=== PATIENT | male | born 1990 | race Caucasian/White ===

== ENCOUNTER 2017-06-01 19:27 | Emergency (ER) | payer OTHER ==
[~2017-06-01] VITALS: Ht 188 cm; Wt 90.0 kg
[~2017-06-01 19:27] MED LIST: NO HOME MEDS
[2017-06-01] MEDS ORDERED: LIDOcaine 1.5% w/epinephrine 1:200,000 5ml ampul IJ ONE (22:50)
[2017-06-01] MEDS ORDERED: TETanus/Pertussis (Acell)/Diphther VAC/PF (Tdap-Adult) 0.5ml syringe IM ONE (22:50)
[2017-06-01 23:31] VITALS: BP 121/84
== END 2017-06-01 23:33 | disposition home or self-care (01) ==
LOC: ER 19:27
DX: S01.511A Laceration without foreign body of lip, initial encounter (principal); F12.10 Cannabis abuse, uncomplicated; Y08.89XA Assault by other specified means, initial encounter; Y93.89 Activity, other specified; Y92.89 Other specified places as the place of occurrence of the external cause; Y99.8 Other external cause status
CPT/HCPCS: 12011; 90715; 99283; J3490

== ENCOUNTER 2018-11-10 19:51 | Emergency (ER) | payer SELFPAY ==
[~2018-11-10] VITALS: Ht 188 cm; Wt 104.5 kg
[2018-11-10 19:57] VITALS: BP 115/74
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
--- NOTE | 2018-11-10 20:49 | NUR ---
Kee, [phone], [facility]
[2018-11-10] MEDS ORDERED: naproxen 500mg tablet PO ONE (21:40)
== END 2018-11-10 22:18 | disposition home or self-care (01) ==
LOC: ER 19:51
DX: R07.89 Other chest pain (principal); F41.9 Anxiety disorder, unspecified; F12.90 Cannabis use, unspecified, uncomplicated
CPT/HCPCS: 36415; 84484; 93005; 99284

== ENCOUNTER 2020-02-29 15:27 | Emergency (ER) | payer MEDICAID ==
[~2020-02-29] VITALS: Ht 185.4 cm; Wt 102.3 kg
[2020-02-29] MEDS ORDERED: ONDA4TAB6 PO (16:38)
[2020-02-29] MEDS ORDERED: DEXA6TAB PO (16:38)
[2020-02-29] MEDS ORDERED: dexamethasone sod phosphate 10mg/ml inj IM STA (16:41)
[2020-02-29] MEDS ORDERED: ALBU8HFA PO (16:54)
[2020-02-29] MEDS ORDERED: GUAI-647 PO (16:56)
[2020-02-29 17:14] VITALS: BP 125/98
== END 2020-02-29 17:18 | disposition home or self-care (01) ==
LOC: ER 15:27
DX: R05 Cough (principal); R51.9 Headache, unspecified; R06.02 Shortness of breath; R07.9 Chest pain, unspecified; R11.0 Nausea; F12.10 Cannabis abuse, uncomplicated; Z20.828 Contact with and (suspected) exposure to other viral communicable diseases
CPT/HCPCS: 36415; 71045; 87635; 93005; 96372; 99285; J1100

== ENCOUNTER 2020-04-21 10:59 | Emergency (ER) | payer SELFPAY ==
[~2020-04-21] VITALS: Ht 175.3 cm; Wt 97.7 kg
[~2020-04-21 10:59] MED LIST changes: +DEXA6TAB PO; +ONDA4TAB6 PO
[2020-04-21] MEDS ORDERED: PRED10TA23 PO (11:21)
[2020-04-21 11:55] VITALS: BP 146/73
== END 2020-04-21 11:59 | disposition home or self-care (01) ==
LOC: ER 10:59
DX: U07.1 COVID-19 (principal); R05 Cough; Z79.899 Other long term (current) drug therapy; F12.90 Cannabis use, unspecified, uncomplicated; Z72.89 Other problems related to lifestyle
CPT/HCPCS: 71045; 99283

== ENCOUNTER 2020-05-06 14:05 | Emergency (ER) | payer OTHER ==
[~2020-05-06] VITALS: Ht 182.9 cm; Wt 109.1 kg
[~2020-05-06 14:05] MED LIST changes: +PRED10TA23 PO
[2020-05-06] MEDS ORDERED: predniSONE 20 mg tablet PO ONE (15:05)
[2020-05-06] MEDS ORDERED: albuterol 2.5 MG/3 ML nebule CONTNEB PRN (15:05)
--- NOTE | 2020-05-06 15:30 | NUR ---
PT PLACED IN ROOM 10 WITH RESP ISO PRECAUTIONS. WOOD TYPE CUTTER PLACED ON PT, VS TAKEN
[2020-05-06 15:39] LABS: BASOPHILS % (AUTO) 0.3 % (0-1); EOSINOPHILS # (AUTO) 0.5 X10'3 (0-0.9); EOSINOPHILS % (AUTO) 4.9 % (0-6); HEMATOCRIT 47.3 % (42.0-52.0); HEMOGLOBIN 15.8 g/dl (14.0-17.9); LYMPHOCYTES # (AUTO) 1.1 X10'3 (1.1-4.8); MEAN CORPUSCULAR HEMOGLOBIN 28.8 PG (27.0-31.0); MEAN CORPUSCULAR HGB CONC 33.5 g/dL (33.0-36.5); MEAN PLATELET VOLUME 7.6 FL (7.4-10.4); MONOCYTES % (AUTO) 8.9 % (2-12); NEUTROPHILS # (AUTO) 8.1 X10'3 (1.8-7.7); NEUTROPHILS % (AUTO) 75.9 % (42-75); PLATELET COUNT 207 X10'3 (140-440); RED CELL DISTRIBUTION WIDTH 14.1 % (11.5-14.5); WHITE BLOOD COUNT 10.7 X10'3 (4.5-11.0)
[2020-05-06 15:55] LABS: ALANINE AMINOTRANSFERASE 56 U/L (12-78); ALBUMIN 2.6 G/DL (3.4-5.0); ALBUMIN/GLOBULIN RATIO 0.6 (1.1-1.5); ALKALINE PHOSPHATASE 68 IU/L (46-116); ANION GAP 4 (8-16); ASPARTATE AMINO TRANSFERASE 18 U/L (10-37); BILIRUBIN,TOTAL 0.3 MG/DL (0.1-1.0); BLOOD UREA NITROGEN 24 MG/DL (7-18); BUN/CREATININE RATIO 34.8 (5.4-32.0); CALCIUM 8.8 MG/DL (8.5-10.1); CHLORIDE 107 MMOL/L (99-107); CREATININE 0.69 MG/DL (0.60-1.10); GLUCOSE 92 MG/DL (70-104); SODIUM 139 MMOL/L (135-145); TOTAL CARBON DIOXIDE 27.7 MMOL/L (24-32); TOTAL PROTEIN 7.3 G/DL (6.4-8.2); eGFR > 90 ML/MIN
[2020-05-06] MEDS ORDERED: iohexol 350MG/ML 100ml bottle IV ONE ×2 (16:03→17:26)
--- NOTE | 2020-05-06 16:58 | NUR ---
CONT NEB FINISHED, CT PG'ED, PT REPORTS IT IS "A LITTLE BIT EASIER TO BREATH" THAN BEFORE HE CAME TO ER
[2020-05-06] MEDS ORDERED: ipratropium/albuterol 3ml nebule NEB ONE (18:25)
[2020-05-06 18:52] VITALS: BP 128/85
== END 2020-05-06 18:54 | disposition home or self-care (01) ==
LOC: ER 14:07
DX: U07.1 COVID-19 (principal); R06.02 Shortness of breath; R06.2 Wheezing; F12.90 Cannabis use, unspecified, uncomplicated; Z79.899 Other long term (current) drug therapy; Z87.891 Personal history of nicotine dependence; Z72.89 Other problems related to lifestyle
CPT/HCPCS: 36415; 71045; 71275; 80053; 83880; 85025; 93005; 94640; 99285; J7512; Q9967; 94760; A7015

== ENCOUNTER 2020-05-15 21:51 | Emergency (ER) | payer OTHER ==
[~2020-05-15] VITALS: Ht 185.4 cm; Wt 109.1 kg
[2020-05-15] MEDS ORDERED: DIAZ-351 PO (23:24)
[2020-05-15] MEDS ORDERED: METH-360 PO (23:24)
[2020-05-15] MEDS ORDERED: ketorolac tromethamine 15mg/ml inj. IM ONE (23:25)
[2020-05-15] MEDS ORDERED: acetaminophen 325mg tablet PO ONE (23:35)
[2020-05-16 00:11] VITALS: BP 139/101
== END 2020-05-16 00:13 | disposition home or self-care (01) ==
LOC: ER 21:51
DX: S39.012A Strain of muscle, fascia and tendon of lower back, initial encounter (principal); R21 Rash and other nonspecific skin eruption; F12.90 Cannabis use, unspecified, uncomplicated; Z72.89 Other problems related to lifestyle; Z79.899 Other long term (current) drug therapy; X58.XXXA Exposure to other specified factors, initial encounter; Y93.89 Activity, other specified; Y92.89 Other specified places as the place of occurrence of the external cause; Y99.8 Other external cause status
CPT/HCPCS: 96372; 99283; J1885

== ENCOUNTER 2020-05-17 10:00 | Emergency (ER) | payer OTHER ==
[~2020-05-17] VITALS: Ht 185.4 cm; Wt 109.1 kg
[~2020-05-17 10:00] MED LIST changes: +DIAZ-351 PO; +METH-360 PO
[2020-05-17] MEDS ORDERED: normal saline 1000ML IV soln IVB ONE ×2 (10:50→12:15)
--- NOTE | 2020-05-17 11:10 | NUR ---
PATIENT HAS A DIFFUSE REDDENED RASH
[2020-05-17 11:12] LABS: BASOPHILS # (AUTO) 0.1 X10'3 (0-0.2); BASOPHILS % (AUTO) 0.4 % (0-1); EOSINOPHILS # (AUTO) 1.1 X10'3 (0-0.9); EOSINOPHILS % (AUTO) 7.8 % (0-6); HEMATOCRIT 42.9 % (42.0-52.0); HEMOGLOBIN 14.3 g/dl (14.0-17.9); LYMPHOCYTES # (AUTO) 3.4 X10'3 (1.1-4.8); LYMPHOCYTES % (AUTO) 25.4 % (21-51); MEAN CORPUSCULAR HEMOGLOBIN 28.3 PG (27.0-31.0); MEAN CORPUSCULAR HGB CONC 33.3 g/dL (33.0-36.5); MEAN PLATELET VOLUME 7.6 FL (7.4-10.4); MONOCYTES # (AUTO) 0.8 X10'3 (0-0.9); MONOCYTES % (AUTO) 6.1 % (2-12); NEUTROPHILS # (AUTO) 8.1 X10'3 (1.8-7.7); NEUTROPHILS % (AUTO) 60.3 % (42-75); PLATELET COUNT 134 X10'3 (140-440); RED BLOOD COUNT 5.04 X10'6 (4.70-6.10); RED CELL DISTRIBUTION WIDTH 14.3 % (11.5-14.5); WHITE BLOOD COUNT 13.5 X10'3 (4.5-11.0)
[2020-05-17 11:22] LABS: PARTIAL THROMBOPLASTIN TIME 28 SECONDS (22-32)
[2020-05-17 11:34] LABS: ALANINE AMINOTRANSFERASE 41 U/L (12-78); ALBUMIN 1.6 G/DL (3.4-5.0); ALBUMIN/GLOBULIN RATIO 0.4 (1.1-1.5); ALKALINE PHOSPHATASE 67 IU/L (46-116); ANION GAP 6 (8-16); ASPARTATE AMINO TRANSFERASE 22 U/L (10-37); BILIRUBIN,TOTAL 0.4 MG/DL (0.1-1.0); BLOOD UREA NITROGEN 21 MG/DL (7-18); BUN/CREATININE RATIO 22.8 (5.4-32.0); C-REACTIVE PROTEIN 2.72 MG/DL (0.0-0.5); CHLORIDE 107 MMOL/L (99-107); CREATININE 0.92 MG/DL (0.60-1.10); GLUCOSE 123 MG/DL (70-104); POTASSIUM 3.9 MMOL/L (3.5-5.1); SODIUM 139 MMOL/L (135-145); TOTAL CARBON DIOXIDE 26.2 MMOL/L (24-32); TOTAL PROTEIN 6.1 G/DL (6.4-8.2); eGFR > 90 ML/MIN
[2020-05-17] MEDS ORDERED: acetaminophen 325mg tablet PO ONE (12:00)
--- NOTE | 2020-05-17 12:19 | NUR ---
patient ambulated wnl to bathroom to attempt to obtain urine sample
[2020-05-17 12:35] LABS: CLARITY,URINE SLIGHTLY CLOUDY (Clear); COLOR,URINE YELLOW (Yellow); GLUCOSE, URINE NEGATIVE (Neg); KETONES,URINE NEGATIVE (Neg); LEUKOCYTE ESTERASE ,URINE NEGATIVE (Neg); NITRITES, URINE NEGATIVE (Neg); OCCULT BLOOD,URINE MODERATE (Neg); PH,URINE 6.5 (4.8-8.0); PROTEIN,URINE >=300 mg/dl (Neg); UROBILINOGEN,URINE 0.2 E.U/dL (0.2-1.0)
[2020-05-17 12:39] LABS: UA COLLECTION TYPE URINAL
[2020-05-17 12:43] LABS: HYALINE CASTS 0-3 /LPF (NEGATIVE); MUCUS STRANDS MODERATE /LPF (Neg)
[2020-05-17 12:48] LABS: BACTERIA,URINE FEW /HPF (Neg); SQUAMOUS EPITHELIAL CELL,UR NONE SEEN /LPF (FEW); WBC,URINE 0-4 /HPF (0-4)
[2020-05-17 14:04] VITALS: BP 142/88
== END 2020-05-17 14:00 | disposition home or self-care (01) ==
LOC: ER 10:00
DX: R21 Rash and other nonspecific skin eruption (principal); R50.9 Fever, unspecified; R05 Cough; R06.02 Shortness of breath; M25.50 Pain in unspecified joint; F12.90 Cannabis use, unspecified, uncomplicated; Z87.891 Personal history of nicotine dependence; Z72.89 Other problems related to lifestyle; Z79.899 Other long term (current) drug therapy; Z86.16 Personal history of COVID-19
CPT/HCPCS: 36415; 71045; 80053; 81001; 85025; 85610; 85651; 85730; 86140; 87081; 87880; 96360; 96361; 99284; J7030

== ENCOUNTER 2020-05-19 03:57 | Inpatient (IN) | payer OTHER ==
[~2020-05-19] VITALS: Ht 188 cm; Wt 109.1 kg
[2020-05-19] MEDS ORDERED: ondansetron/PF 4mg/2ml inj IV ONE (05:10)
[2020-05-19] MEDS ORDERED: LORazepam 2 mg/ml vial IV ONE (05:10)
[2020-05-19] MEDS ORDERED: morphine 2 MG/ML inj. syringe IV PRN (05:10)
[2020-05-19] MEDS ORDERED: normal saline 1000ML IV soln IVB ONE ×2 (05:10→05:55)
[2020-05-19] MEDS ORDERED: pantoprazole 40 MG vial IV ONE ×2 (05:10→10:15)
[2020-05-19] MEDS ORDERED: ipratropium/albuterol 3ml nebule NEB ONE (05:10)
[2020-05-19 05:24] LABS: BASOPHILS % (AUTO) 0.4 % (0-1); EOSINOPHILS # (AUTO) 0.9 X10'3 (0-0.9); EOSINOPHILS % (AUTO) 7.9 % (0-6); HEMATOCRIT 41.2 % (42.0-52.0); HEMOGLOBIN 13.8 g/dl (14.0-17.9); LYMPHOCYTES # (AUTO) 1.5 X10'3 (1.1-4.8); LYMPHOCYTES % (AUTO) 13.7 % (21-51); MEAN CORPUSCULAR HEMOGLOBIN 28.5 PG (27.0-31.0); MEAN CORPUSCULAR HGB CONC 33.5 g/dL (33.0-36.5); MEAN PLATELET VOLUME 8.7 FL (7.4-10.4); MONOCYTES # (AUTO) 0.7 X10'3 (0-0.9); MONOCYTES % (AUTO) 6.6 % (2-12); NEUTROPHILS # (AUTO) 7.9 X10'3 (1.8-7.7); NEUTROPHILS % (AUTO) 71.4 % (42-75); PLATELET COUNT 107 X10'3 (140-440); RED BLOOD COUNT 4.84 X10'6 (4.70-6.10); RED CELL DISTRIBUTION WIDTH 14.7 % (11.5-14.5)
[2020-05-19 05:36] LABS: ALANINE AMINOTRANSFERASE 46 U/L (12-78); ALBUMIN 1.7 G/DL (3.4-5.0); ALBUMIN/GLOBULIN RATIO 0.4 (1.1-1.5); ALKALINE PHOSPHATASE 72 IU/L (46-116); ANION GAP 8 (8-16); ASPARTATE AMINO TRANSFERASE 19 U/L (10-37); BILIRUBIN,TOTAL 0.5 MG/DL (0.1-1.0); BLOOD UREA NITROGEN 24 MG/DL (7-18); CALCIUM 7.8 MG/DL (8.5-10.1); CHLORIDE 106 MMOL/L (99-107); GLUCOSE 96 MG/DL (70-104); LIPASE < 50 U/L (73-393); POTASSIUM 3.8 MMOL/L (3.5-5.1); SODIUM 140 MMOL/L (135-145); TOTAL CARBON DIOXIDE 25.7 MMOL/L (24-32); TOTAL PROTEIN 6.4 G/DL (6.4-8.2); eGFR 89 ML/MIN
[2020-05-19] MEDS ORDERED: ONDA8TAB13 PO (05:53)
[2020-05-19] MEDS ORDERED: PANT-47 PO (05:53)
[2020-05-19 07:31] LABS: URINE AMPHETAMINE SCREEN NEGATIVE (Neg); URINE BARBITUATE SCREEN NEGATIVE (Neg); URINE BENZODIAZEPINES SCREEN POSITIVE (Neg); URINE CANNABINOID SCREEN POSITIVE (Neg); URINE COCAINE SCREEN NEGATIVE (Neg); URINE METHADONE SCREEN NEGATIVE (Neg); URINE OPIATE SCREEN POSITIVE (Neg); URINE PHENCYCLIDINE SCREEN NEGATIVE (Neg)
[2020-05-19 09:33] LABS: ETHANOL < 0.010 GM/DL (0.0-0.010)
[2020-05-19] MEDS ORDERED: magnesium hydroxide 30ml (MOM) UD suspension PO PRN (10:00)
[2020-05-19] MEDS ORDERED: magnesium Cl slow-release 64mg tablet PO PRN (10:00)
[2020-05-19] MEDS ORDERED: potassium Cl 20 mEq SR tablet PO PRN ×2 (10:00)
[2020-05-19] MEDS ORDERED: acetaminophen 325mg tablet PO PRN ×2 (10:00)
[2020-05-19] MEDS ORDERED: potassium Cl 40MEQ/1/2NS 520ml 520 ML IV PRN ×2 (10:00)
[2020-05-19] MEDS ORDERED: HYDROmorphone inj. 0.5 MG/0.5 ML DISP.SYRIN IV PRN (10:00)
[2020-05-19] MEDS ORDERED: magnesium 2GM in 50ml NS 50 ML IV PRN (10:00)
[2020-05-19] MEDS ORDERED: HYDROcodone/acetaminophen 10/325mg tab PO PRN (10:00)
[2020-05-19] MEDS ORDERED: magnesium 4gm in 100ml NS 100 ML IV PRN (10:00)
[2020-05-19] MEDS ORDERED: mag hydrox/Alum hydrox/simeth 30ml oral suspension PO PRN (10:00)
[2020-05-19] MEDS ORDERED: bisacodyl 10mg suppository rectal RC PRN (10:00)
[2020-05-19] MEDS ORDERED: proCHLORperazine 10 MG/2 ml inj IV ONE (10:15)
[2020-05-19] MEDS: ondansetron/PF 4mg/2ml inj IV PRN (10:25)
[2020-05-19] MEDS: metoclopramide 5 mg/ml inj IV PRN (10:25)
[2020-05-19] MEDS ORDERED: iohexol 300mg/ml 100ml inj. ONE (10:39)
--- NOTE | 2020-05-19 10:40 | NUR ---
Contacted Dr Sewell on behalf of primary RN Johnny who indicated pt's condition deteriorating and he noted no COVID done. Pt also experiencing diarrhea. Discussed w/ Dr Sewell; new order for COVID and c.Diff obtained.
[2020-05-19 10:57] LABS: CLARITY,URINE CLOUDY (Clear); COLOR,URINE YELLOW (Yellow); GLUCOSE, URINE NEGATIVE (Neg); KETONES,URINE 15 mg/dl (Neg); LEUKOCYTE ESTERASE ,URINE NEGATIVE (Neg); NITRITES, URINE NEGATIVE (Neg); OCCULT BLOOD,URINE MODERATE (Neg); PROTEIN,URINE >=300 mg/dl (Neg); UROBILINOGEN,URINE 0.2 E.U/dL (0.2-1.0)
[2020-05-19 11:00] LABS: UA COLLECTION TYPE CLN CATCH MIDSTREAM
[2020-05-19 11:02] LABS: D-DIMER 2.43 MG/L FEU (0-0.50)
[2020-05-19 11:18] LABS: BACTERIA,URINE 1+ /HPF (Neg); HYALINE CASTS >30 /LPF (NEGATIVE)
[2020-05-19 11:20] LABS: MUCUS STRANDS MANY /LPF (Neg); SQUAMOUS EPITHELIAL CELL,UR FEW /LPF (FEW)
[2020-05-19] MEDS ORDERED: DIAZ5TAB4 PO (12:22)
[2020-05-19] MEDS ORDERED: METH-798 PO (12:23)
[2020-05-19 13:07] VITALS: BP 137/83
[2020-05-19] MEDS: pantoprazole 40MG/NS 100ML BAG 100 ML IV SCH ×2 (16:45→21:38)
[2020-05-19 18:00] VITALS: BP 143/96
[2020-05-19] MEDS: normal saline 1000ml 1,000 ML IV SCH ×2 (18:00→21:39)
--- NOTE | 2020-05-19 18:15 | NUR ---
RECEIVED REPORT FROM FABIENNE GARCIA AND ASSUMED PATIENT CARE
[2020-05-19] MEDS: K and/or MAG REPLACEMENT MC SCH (20:00)
[2020-05-19] MEDS ORDERED: temazepam 15mg capsule PO PRN (21:00)
[2020-05-19] MEDS: benzonatate 100mg capsule PO SCH (21:29)
[2020-05-19 22:00] VITALS: BP 148/88
[2020-05-20] VITALS (9 sets, daily range): BP systolic 143–161; BP diastolic 68–97
[2020-05-20] MEDS: pantoprazole 40MG/NS 100ML BAG 100 ML IV SCH ×5 (01:52→20:07)
[2020-05-20] MEDS: guaiFENesin 200 MG/10 ML oral syrup UD cup PO PRN ×2 (01:56→23:00)
[2020-05-20] MEDS: normal saline 1000ml 1,000 ML IV SCH ×3 (02:00→18:00)
[2020-05-20 07:25] LABS: BASOPHILS % (AUTO) 0.4 % (0-1); EOSINOPHILS # (AUTO) 0.9 X10'3 (0-0.9); EOSINOPHILS % (AUTO) 11.9 % (0-6); HEMATOCRIT 36.3 % (42.0-52.0); LYMPHOCYTES # (AUTO) 2.3 X10'3 (1.1-4.8); LYMPHOCYTES % (AUTO) 30.4 % (21-51); MEAN CORPUSCULAR HEMOGLOBIN 28.6 PG (27.0-31.0); MEAN CORPUSCULAR VOLUME 86.9 FL (78-98); MEAN PLATELET VOLUME 7.5 FL (7.4-10.4); MONOCYTES # (AUTO) 0.6 X10'3 (0-0.9); MONOCYTES % (AUTO) 7.7 % (2-12); NEUTROPHILS # (AUTO) 3.8 X10'3 (1.8-7.7); NEUTROPHILS % (AUTO) 49.6 % (42-75); PLATELET COUNT 104 X10'3 (140-440); RED BLOOD COUNT 4.18 X10'6 (4.70-6.10); RED CELL DISTRIBUTION WIDTH 14.8 % (11.5-14.5); WHITE BLOOD COUNT 7.7 X10'3 (4.5-11.0)
[2020-05-20 07:57] LABS: ALANINE AMINOTRANSFERASE 34 U/L (12-78); ALBUMIN 1.3 G/DL (3.4-5.0); ALBUMIN/GLOBULIN RATIO 0.3 (1.1-1.5); ALKALINE PHOSPHATASE 57 IU/L (46-116); ANION GAP 7 (8-16); ASPARTATE AMINO TRANSFERASE 14 U/L (10-37); BILIRUBIN,TOTAL 0.3 MG/DL (0.1-1.0); BLOOD UREA NITROGEN 16 MG/DL (7-18); BUN/CREATININE RATIO 23.2 (5.4-32.0); CALCIUM 7.2 MG/DL (8.5-10.1); CHLORIDE 112 MMOL/L (99-107); CREATININE 0.69 MG/DL (0.60-1.10); GLUCOSE 73 MG/DL (70-104); MAGNESIUM 2.4 MG/DL (1.5-2.4); PHOSPHORUS 2.3 MG/DL (2.3-4.5); POTASSIUM 4.3 MMOL/L (3.5-5.1); SODIUM 143 MMOL/L (135-145); TOTAL CARBON DIOXIDE 24.1 MMOL/L (24-32); TOTAL PROTEIN 5.5 G/DL (6.4-8.2); eGFR > 90 ML/MIN
[2020-05-20] MEDS: K and/or MAG REPLACEMENT MC SCH ×2 (08:00→20:00)
[2020-05-20] MEDS ORDERED: pantoprazole 40 MG vial IV SCH (08:00)
[2020-05-20] MEDS: benzonatate 100mg capsule PO SCH ×3 (08:52→20:07)
[2020-05-20] MEDS ORDERED: MIDAZolam 1 MG/ML 5ML VIAL ONE (11:54)
[2020-05-20] MEDS ORDERED: LIDOcaine Viscous 15ml cup ONE (11:54)
[2020-05-20] MEDS ORDERED: fentaNYL/PF 50MCG/1 ML 2ML syringe ONE (11:54)
[2020-05-20] MEDS: HYDROcodone/acetaminophen 5mg/325mg tablet PO PRN (17:25)
--- NOTE | 2020-05-20 18:30 | NUR ---
Patient in room [facility]TH[facility] 4016. I have received report from Jo Ann GARCIA and had the opportunity to ask questions and assume patient care.
[2020-05-21] MEDS: normal saline 1000ml 1,000 ML IV SCH ×3 (00:13→16:44)
[2020-05-21] MEDS: pantoprazole 40MG/NS 100ML BAG 100 ML IV SCH ×5 (00:50→20:14)
[2020-05-21] MEDS: ondansetron/PF 4mg/2ml inj IV PRN ×2 (01:32→08:56)
[2020-05-21 06:00] VITALS: BP 147/85
--- NOTE | 2020-05-21 06:30 | NUR ---
Patient in room [facility]TH[facility] 4016. I have received report from RADHA Melendez and had the opportunity to ask questions and assume patient care.
--- NOTE | 2020-05-21 06:37 | NUR ---
Problems reprioritized. Patient report given, questions answered & plan of care reviewed with Rajwinder GARCIA.
[2020-05-21] MEDS: K and/or MAG REPLACEMENT MC SCH ×2 (08:00→20:00)
[2020-05-21 08:30] LABS: BASOPHILS % (AUTO) 0.5 % (0-1); EOSINOPHILS # (AUTO) 0.9 X10'3 (0-0.9); EOSINOPHILS % (AUTO) 11.4 % (0-6); HEMATOCRIT 34.7 % (42.0-52.0); HEMOGLOBIN 11.6 g/dl (14.0-17.9); LYMPHOCYTES # (AUTO) 2.7 X10'3 (1.1-4.8); LYMPHOCYTES % (AUTO) 35.7 % (21-51); MEAN CORPUSCULAR HEMOGLOBIN 28.6 PG (27.0-31.0); MEAN CORPUSCULAR HGB CONC 33.5 g/dL (33.0-36.5); MEAN CORPUSCULAR VOLUME 85.5 FL (78-98); MEAN PLATELET VOLUME 7.2 FL (7.4-10.4); MONOCYTES # (AUTO) 0.6 X10'3 (0-0.9); MONOCYTES % (AUTO) 7.8 % (2-12); NEUTROPHILS # (AUTO) 3.4 X10'3 (1.8-7.7); NEUTROPHILS % (AUTO) 44.6 % (42-75); PLATELET COUNT 112 X10'3 (140-440); RED BLOOD COUNT 4.06 X10'6 (4.70-6.10); RED CELL DISTRIBUTION WIDTH 14.7 % (11.5-14.5); WHITE BLOOD COUNT 7.5 X10'3 (4.5-11.0)
[2020-05-21] MEDS: benzonatate 100mg capsule PO SCH ×3 (08:56→20:15)
[2020-05-21 09:08] LABS: ALANINE AMINOTRANSFERASE 36 U/L (12-78); ALBUMIN 1.2 G/DL (3.4-5.0); ALBUMIN/GLOBULIN RATIO 0.3 (1.1-1.5); ALKALINE PHOSPHATASE 57 IU/L (46-116); ANION GAP 5 (8-16); ASPARTATE AMINO TRANSFERASE 19 U/L (10-37); BILIRUBIN,TOTAL 0.3 MG/DL (0.1-1.0); BLOOD UREA NITROGEN 11 MG/DL (7-18); BUN/CREATININE RATIO 17.2 (5.4-32.0); CALCIUM 7.2 MG/DL (8.5-10.1); CHLORIDE 113 MMOL/L (99-107); CREATININE 0.64 MG/DL (0.60-1.10); GLUCOSE 86 MG/DL (70-104); MAGNESIUM 2.2 MG/DL (1.5-2.4); PHOSPHORUS 2.3 MG/DL (2.3-4.5); POTASSIUM 4.2 MMOL/L (3.5-5.1); SODIUM 143 MMOL/L (135-145); TOTAL CARBON DIOXIDE 25.5 MMOL/L (24-32); TOTAL PROTEIN 5.1 G/DL (6.4-8.2); eGFR > 90 ML/MIN
--- NOTE | 2020-05-21 10:29 | NUR ---
Pt did not want breakfast because he had nausea, gave him zofran and he said he will try lunch.
--- NOTE | 2020-05-21 10:32 | NUR ---
Pt refused breakfast he was nauseous we gave him Caitlin so we could try lunch Addendum: 05/21/20 at 1033 by Sylvia DE LA FUENTE Amended: Links added.
--- NOTE | 2020-05-21 10:45 | NUR ---
Pt with deep forceful inhale/exhale and has forceful coughing fits at times creating blood streaked sputum in small quantities. Addendum: 05/21/20 at 1052 by Rajwinder Estrada RN Amended: Links added.
[2020-05-21] MEDS: metoclopramide 5 mg/ml inj IV PRN (12:13)
[2020-05-21] MEDS: HYDROcodone/acetaminophen 5mg/325mg tablet PO PRN (12:18)
[2020-05-21] MEDS ORDERED: CefTRIAXone/D5W-Rocephin 1gm 50 ML IV ONE (13:55)
[2020-05-21] MEDS: sucralfate 1 gm tablet PO SCH ×2 (16:38→20:15)
[2020-05-21 18:00] VITALS: BP 148/95
--- NOTE | 2020-05-21 18:36 | NUR ---
Problems reprioritized. Patient report given, questions answered & plan of care reviewed with RADHA Melendez.
--- NOTE | 2020-05-21 18:52 | NUR ---
Patient in room [facility]TH[facility] 4016. I have received report from Rajwinder GARCIA and had the opportunity to ask questions and assume patient care.
[2020-05-21 22:00] VITALS: BP 140/92
[2020-05-22] MEDS: normal saline 1000ml 1,000 ML IV SCH ×3 (00:47→15:33)
[2020-05-22] MEDS: pantoprazole 40MG/NS 100ML BAG 100 ML IV SCH ×5 (01:47→21:24)
[2020-05-22 06:00] VITALS: BP 140/91
--- NOTE | 2020-05-22 06:22 | NUR ---
Problems reprioritized. Patient report given, questions answered & plan of care reviewed with Kasandra GARCIA.
--- NOTE | 2020-05-22 06:40 | NUR ---
Patient in room [facility]TH[facility] 4016. I have received report from Nora GARCIA and had the opportunity to ask questions and assume patient care.
[2020-05-22] MEDS: CefTRIAXone/D5W-Rocephin 1gm 50 ML IV SCH (07:27)
[2020-05-22] MEDS: sucralfate 1 gm tablet PO SCH ×4 (07:27→21:24)
[2020-05-22] MEDS: benzonatate 100mg capsule PO SCH ×3 (07:27→21:25)
[2020-05-22] MEDS: K and/or MAG REPLACEMENT MC SCH ×2 (08:00→20:00)
[2020-05-22 08:14] LABS: BASOPHILS # (AUTO) 0.1 X10'3 (0-0.2); BASOPHILS % (AUTO) 0.7 % (0-1); EOSINOPHILS # (AUTO) 0.8 X10'3 (0-0.9); EOSINOPHILS % (AUTO) 10.4 % (0-6); HEMATOCRIT 35.1 % (42.0-52.0); HEMOGLOBIN 11.7 g/dl (14.0-17.9); LYMPHOCYTES # (AUTO) 2.8 X10'3 (1.1-4.8); LYMPHOCYTES % (AUTO) 37.3 % (21-51); MEAN CORPUSCULAR HEMOGLOBIN 27.9 PG (27.0-31.0); MEAN CORPUSCULAR HGB CONC 33.2 g/dL (33.0-36.5); MEAN PLATELET VOLUME 7.1 FL (7.4-10.4); MONOCYTES # (AUTO) 0.6 X10'3 (0-0.9); MONOCYTES % (AUTO) 7.8 % (2-12); NEUTROPHILS # (AUTO) 3.3 X10'3 (1.8-7.7); NEUTROPHILS % (AUTO) 43.8 % (42-75); PLATELET COUNT 126 X10'3 (140-440); RED BLOOD COUNT 4.19 X10'6 (4.70-6.10); RED CELL DISTRIBUTION WIDTH 14.3 % (11.5-14.5); WHITE BLOOD COUNT 7.5 X10'3 (4.5-11.0)
[2020-05-22 08:37] LABS: ALANINE AMINOTRANSFERASE 49 U/L (12-78); ALBUMIN 1.2 G/DL (3.4-5.0); ALBUMIN/GLOBULIN RATIO 0.3 (1.1-1.5); ALKALINE PHOSPHATASE 60 IU/L (46-116); ANION GAP 5 (8-16); ASPARTATE AMINO TRANSFERASE 29 U/L (10-37); BILIRUBIN,TOTAL 0.4 MG/DL (0.1-1.0); BLOOD UREA NITROGEN 10 MG/DL (7-18); BUN/CREATININE RATIO 15.9 (5.4-32.0); CALCIUM 7.3 MG/DL (8.5-10.1); CHLORIDE 111 MMOL/L (99-107); CREATININE 0.63 MG/DL (0.60-1.10); GLUCOSE 82 MG/DL (70-104); MAGNESIUM 1.9 MG/DL (1.5-2.4); PHOSPHORUS 2.3 MG/DL (2.3-4.5); POTASSIUM 3.9 MMOL/L (3.5-5.1); SODIUM 141 MMOL/L (135-145); TOTAL CARBON DIOXIDE 25.4 MMOL/L (24-32); TOTAL PROTEIN 5.2 G/DL (6.4-8.2); eGFR > 90 ML/MIN
--- NOTE | 2020-05-22 09:11 | NUR ---
Patient resting comfortably in bed, IV replaced, no complaints of pain, nausea or vomiting this morning. Bed locked in lowest position, call light within reach, patient instructed to call for assistance, verbalized understanding.
[2020-05-22 11:00] VITALS: BP 106/80
[2020-05-22] MEDS: predniSONE 20 mg tablet PO SCH (15:33)
[2020-05-22 18:00] VITALS: BP 164/96
--- NOTE | 2020-05-22 18:45 | NUR ---
Patient in room [facility]TH[facility] 4016. I have received report from Kasandra GARCIA and had the opportunity to ask questions and assume patient care.
[2020-05-22] MEDS: lactobacillus rhamnosus 10,000 MMU CELLS/CAPSULE PO SCH (21:24)
[2020-05-22 22:00] VITALS: BP 139/58
[2020-05-23] MEDS: normal saline 1000ml 1,000 ML IV SCH ×4 (02:00→23:22)
[2020-05-23] MEDS: pantoprazole 40MG/NS 100ML BAG 100 ML IV SCH ×2 (04:19→06:00)
[2020-05-23 05:30] VITALS: BP 169/95
--- NOTE | 2020-05-23 06:15 | NUR ---
Problems reprioritized. Patient report given, questions answered & plan of care reviewed with Jose Miguel GARCIA. Addendum: 05/23/20 at 0618 by Nora Prado RN Kenisha GARCIA
--- NOTE | 2020-05-23 06:30 | NUR ---
Patient in room [facility]TH[facility] 4016. I have received report from RADHA Melendez and had the opportunity to ask questions and assume patient care.
[2020-05-23 07:20] VITALS: BP 156/95
[2020-05-23] MEDS ORDERED: LORazepam 1 MG tablet PO ONE (07:50)
[2020-05-23 08:32] LABS: BASOPHILS # (AUTO) 0.1 X10'3 (0-0.2); BASOPHILS % (AUTO) 0.7 % (0-1); EOSINOPHILS # (AUTO) 0.5 X10'3 (0-0.9); EOSINOPHILS % (AUTO) 4.8 % (0-6); HEMATOCRIT 38.5 % (42.0-52.0); LYMPHOCYTES # (AUTO) 3.5 X10'3 (1.1-4.8); LYMPHOCYTES % (AUTO) 37.4 % (21-51); MEAN CORPUSCULAR HEMOGLOBIN 28.6 PG (27.0-31.0); MEAN CORPUSCULAR HGB CONC 33.8 g/dL (33.0-36.5); MEAN CORPUSCULAR VOLUME 84.6 FL (78-98); MEAN PLATELET VOLUME 7.1 FL (7.4-10.4); MONOCYTES # (AUTO) 0.8 X10'3 (0-0.9); MONOCYTES % (AUTO) 7.9 % (2-12); NEUTROPHILS # (AUTO) 4.7 X10'3 (1.8-7.7); NEUTROPHILS % (AUTO) 49.2 % (42-75); PLATELET COUNT 167 X10'3 (140-440); RED BLOOD COUNT 4.55 X10'6 (4.70-6.10); WHITE BLOOD COUNT 9.5 X10'3 (4.5-11.0)
[2020-05-23] MEDS: sucralfate 1 gm tablet PO SCH ×4 (08:39→20:22)
[2020-05-23] MEDS: benzonatate 100mg capsule PO SCH ×3 (08:39→20:22)
[2020-05-23] MEDS: lactobacillus rhamnosus 10,000 MMU CELLS/CAPSULE PO SCH ×2 (08:39→20:21)
[2020-05-23] MEDS: pantoprazole 40mg Tablet.DR PO SCH ×2 (08:39→20:22)
[2020-05-23] MEDS: predniSONE 20 mg tablet PO SCH (08:39)
[2020-05-23] MEDS: CefTRIAXone/D5W-Rocephin 1gm 50 ML IV SCH (08:39)
[2020-05-23 08:59] LABS: CHLORIDE 110 MMOL/L (99-107); GLUCOSE 92 MG/DL (70-104); POTASSIUM 3.9 MMOL/L (3.5-5.1); SODIUM 139 MMOL/L (135-145); TOTAL CARBON DIOXIDE 24.4 MMOL/L (24-32)
[2020-05-23 09:00] LABS: ALANINE AMINOTRANSFERASE 81 U/L (12-78); ALBUMIN 1.2 G/DL (3.4-5.0); ALBUMIN/GLOBULIN RATIO 0.3 (1.1-1.5); ALKALINE PHOSPHATASE 71 IU/L (46-116); ANION GAP 5 (8-16); ASPARTATE AMINO TRANSFERASE 44 U/L (10-37); BILIRUBIN,TOTAL 0.2 MG/DL (0.1-1.0); BLOOD UREA NITROGEN 11 MG/DL (7-18); BUN/CREATININE RATIO 17.5 (5.4-32.0); CALCIUM 7.4 MG/DL (8.5-10.1); CREATININE 0.63 MG/DL (0.60-1.10); MAGNESIUM 2.1 MG/DL (1.5-2.4); PHOSPHORUS 2.7 MG/DL (2.3-4.5); TOTAL PROTEIN 5.6 G/DL (6.4-8.2); eGFR > 90 ML/MIN
[2020-05-23] MEDS: K and/or MAG REPLACEMENT MC SCH ×2 (09:40→20:00)
[2020-05-23 10:00] VITALS: BP 172/95
--- NOTE | 2020-05-23 13:14 | NUR ---
Dr Berumen notified of elevated BP's.
[2020-05-23] MEDS: lisinopril 5mg tablet PO SCH (15:53)
[2020-05-23 18:00] VITALS: BP 159/97
--- NOTE | 2020-05-23 18:10 | NUR ---
Problems reprioritized. Patient report given, questions answered & plan of care reviewed with RADHA Velazco.
[2020-05-23 22:00] VITALS: BP 160/86
[2020-05-24 06:00] VITALS: BP 182/97
[2020-05-24 07:47] LABS: TOTAL PROTEIN,URINE RANDOM 375.5 MG/DL
[2020-05-24] MEDS: pantoprazole 40mg Tablet.DR PO SCH ×2 (08:02→20:38)
[2020-05-24] MEDS: predniSONE 20 mg tablet PO SCH (08:02)
[2020-05-24] MEDS: lactobacillus rhamnosus 10,000 MMU CELLS/CAPSULE PO SCH ×2 (08:02→20:37)
[2020-05-24] MEDS: lisinopril 5mg tablet PO SCH (08:07)
[2020-05-24] MEDS: CefTRIAXone/D5W-Rocephin 1gm 50 ML IV SCH (08:08)
[2020-05-24] MEDS: benzonatate 100mg capsule PO SCH ×3 (08:08→20:37)
[2020-05-24] MEDS: sucralfate 1 gm tablet PO SCH ×4 (08:08→20:37)
[2020-05-24] MEDS: K and/or MAG REPLACEMENT MC SCH ×2 (08:08→18:45)
[2020-05-24] MEDS: normal saline 1000ml 1,000 ML IV SCH ×3 (08:10→23:52)
[2020-05-24 08:16] LABS: BASOPHILS # (AUTO) 0.1 X10'3 (0-0.2); BASOPHILS % (AUTO) 0.6 % (0-1); EOSINOPHILS # (AUTO) 0.7 X10'3 (0-0.9); EOSINOPHILS % (AUTO) 6.2 % (0-6); HEMATOCRIT 38.1 % (42.0-52.0); HEMOGLOBIN 12.8 g/dl (14.0-17.9); LYMPHOCYTES # (AUTO) 4.8 X10'3 (1.1-4.8); LYMPHOCYTES % (AUTO) 42.4 % (21-51); MEAN CORPUSCULAR HEMOGLOBIN 28.2 PG (27.0-31.0); MEAN CORPUSCULAR HGB CONC 33.6 g/dL (33.0-36.5); MEAN CORPUSCULAR VOLUME 83.9 FL (78-98); MEAN PLATELET VOLUME 7.2 FL (7.4-10.4); MONOCYTES # (AUTO) 0.6 X10'3 (0-0.9); MONOCYTES % (AUTO) 5.5 % (2-12); NEUTROPHILS # (AUTO) 5.2 X10'3 (1.8-7.7); NEUTROPHILS % (AUTO) 45.3 % (42-75); PLATELET COUNT 205 X10'3 (140-440); RED BLOOD COUNT 4.55 X10'6 (4.70-6.10); RED CELL DISTRIBUTION WIDTH 14.2 % (11.5-14.5); WHITE BLOOD COUNT 11.4 X10'3 (4.5-11.0)
[2020-05-24 08:53] LABS: ALANINE AMINOTRANSFERASE 76 U/L (12-78); ALBUMIN 1.3 G/DL (3.4-5.0); ALBUMIN/GLOBULIN RATIO 0.3 (1.1-1.5); ALKALINE PHOSPHATASE 73 IU/L (46-116); ANION GAP 3 (8-16); ASPARTATE AMINO TRANSFERASE 37 U/L (10-37); BILIRUBIN,TOTAL 0.4 MG/DL (0.1-1.0); BLOOD UREA NITROGEN 11 MG/DL (7-18); BUN/CREATININE RATIO 16.2 (5.4-32.0); CALCIUM 7.5 MG/DL (8.5-10.1); CHLORIDE 112 MMOL/L (99-107); CREATININE 0.68 MG/DL (0.60-1.10); GLUCOSE 79 MG/DL (70-104); PHOSPHORUS 2.4 MG/DL (2.3-4.5); POTASSIUM 3.5 MMOL/L (3.5-5.1); SODIUM 141 MMOL/L (135-145); TOTAL CARBON DIOXIDE 25.8 MMOL/L (24-32); TOTAL PROTEIN 5.8 G/DL (6.4-8.2); eGFR > 90 ML/MIN
[2020-05-24] MEDS ORDERED: LISI-642 PO (09:10)
[2020-05-24] MEDS ORDERED: SUCR1TAB34 PO (09:10)
[2020-05-24] MEDS ORDERED: PANT40TA54 PO (09:10)
[2020-05-24 10:00] VITALS: BP 141/74
[2020-05-24 10:24] LABS: HIV ANTIBODY 1&2 RAPID NON-REACTIVE (Neg)
--- NOTE | 2020-05-24 10:59 | NUR ---
Nutrition consult re: low albumin. Pt with relatively poor PO intake while on full liquid diet however has been eating well with 100% PO intake since diet has been advanced to regular. Low albumin likely complication of nephrotic syndrome per rn perioperative note. No nutrition intervention warranted at this time. Pt presented with nausea and bloody emesis. S/p EGD with findings of esophagitis, hiatal hernia, gastritis, duodenitis per MD note. Pt with possible pneumonitis/bronchitis per MD note. LBM 05/23 per I&O. Will continue to follow and make recommendations as appropriate. Recommendations: 1) Continue regular diet 2) Monitor need for additional protein for satiety 3) Bowel care per rx 4) Scaled weight per rx Addendum: 05/24/20 at [address] Amended: Links added.
[2020-05-24] MEDS: HYDROcodone/acetaminophen 5mg/325mg tablet PO PRN (13:55)
[2020-05-24 18:00] VITALS: BP 168/91
[2020-05-24 22:00] VITALS: BP 159/81
[2020-05-25 06:00] VITALS: BP 154/91
--- NOTE | 2020-05-25 06:33 | NUR ---
Report given to stefania Slaughter.
--- NOTE | 2020-05-25 06:44 | NUR ---
Patient in room [facility]TH[facility] 4016. I have received report from Polina GARCIA and had the opportunity to ask questions and assume patient care.
[2020-05-25] MEDS: HYDROcodone/acetaminophen 5mg/325mg tablet PO PRN (07:44)
[2020-05-25] MEDS: sucralfate 1 gm tablet PO SCH ×2 (07:44→11:48)
[2020-05-25] MEDS: lisinopril 5mg tablet PO SCH (07:44)
[2020-05-25] MEDS: lactobacillus rhamnosus 10,000 MMU CELLS/CAPSULE PO SCH (07:44)
[2020-05-25] MEDS: pantoprazole 40mg Tablet.DR PO SCH (07:44)
[2020-05-25] MEDS: predniSONE 20 mg tablet PO SCH (07:44)
[2020-05-25] MEDS: benzonatate 100mg capsule PO SCH (07:44)
[2020-05-25] MEDS: CefTRIAXone/D5W-Rocephin 1gm 50 ML IV SCH (07:45)
[2020-05-25] MEDS: K and/or MAG REPLACEMENT MC SCH (08:00)
[2020-05-25 08:08] LABS: ANTISTREPTOLYSIN O AB 199.5 IU/mL (0.0-200.0); COMPLEMENT C3, SERUM 79 mg/dL (82-167); COMPLEMENT C4, SERUM 6 mg/dL (12-38)
--- NOTE | 2020-05-25 08:59 | NUR ---
Patient resting comfortably in bed, complains of 5/10 back pain, norco given. 24hr urine in process, patient verbalizes understanding of using urinal to collect urine. Bed locked in lowest position, call light within reach, instructed to call for assistance, verbalized understanding.
[2020-05-25 10:00] VITALS: BP 164/90
[2020-05-25] MEDS: normal saline 1000ml 1,000 ML IV SCH (10:00)
[2020-05-25 12:33] LABS: HBSAG SCREEN Negative (Negative); HEPATITIS C ANTIBODY <0.1 s/co ratio (0.0-0.9)
--- NOTE | 2020-05-25 13:43 | NUR ---
Patient discharged home per orders. IV removed. Discharge instructions provided, patient and family verbalized understanding.
[2020-05-25] MEDS ORDERED: METO-539 PO (13:53)
[2020-05-25] MEDS ORDERED: AMOX-419 PO (13:55)
== END 2020-05-25 13:30 | disposition home or self-care (01) | DRG 377 ==
LOC: ER 03:57 → ED HOLD 09:56 → ORTHO 4S 12:50
PROVIDERS: ADMIT Family Medicine; ATTEND Family Medicine
PROC: BW211ZZ Computerized Tomography (CT Scan) of Abdomen and Pelvis using Low Osmolar Contrast (ICD-10-PCS; 2020-05-19)
PROC: 0DJ08ZZ Inspection of Upper Intestinal Tract, Via Natural or Artificial Opening Endoscopic (ICD-10-PCS; principal; 2020-05-20)
DX: K29.71 Gastritis, unspecified, with bleeding (principal); J18.9 Pneumonia, unspecified organism; E43 Unspecified severe protein-calorie malnutrition; N04.9 Nephrotic syndrome with unspecified morphologic changes; E88.09 Other disorders of plasma-protein metabolism, not elsewhere classified; K20.90 Esophagitis, unspecified without bleeding; K29.80 Duodenitis without bleeding; M25.542 Pain in joints of left hand; M25.541 Pain in joints of right hand; Z86.16 Personal history of COVID-19; Z20.822 Contact with and (suspected) exposure to COVID-19; K31.9 Disease of stomach and duodenum, unspecified; G89.29 Other chronic pain; M54.9 Dorsalgia, unspecified; J20.9 Acute bronchitis, unspecified; R03.0 Elevated blood-pressure reading, without diagnosis of hypertension; R21 Rash and other nonspecific skin eruption; R31.9 Hematuria, unspecified; F12.90 Cannabis use, unspecified, uncomplicated; R00.0 Tachycardia, unspecified; K44.9 Diaphragmatic hernia without obstruction or gangrene; T39.395A Adverse effect of other nonsteroidal anti-inflammatory drugs [NSAID], initial encounter; Y92.89 Other specified places as the place of occurrence of the external cause; Z87.11 Personal history of peptic ulcer disease; Z68.30 Body mass index [BMI] 30.0-30.9, adult; Z79.899 Other long term (current) drug therapy
CPT/HCPCS: 36415; 43239; 71045; 72131; 74177; 80053; 80305; 80320; 81001; 82570; 83605; 83690; 83735; 83880; 84100; 84145; 84155; 84156; 84165; 84443; 85025; 85379; 85651; 86038; 86060; 86140; 86160; 86592; 86703; 86803; 87040; 87081; 87088; 87340; 87426; 93005; 93306; 93308; 94640; 94760; 96361; 96374; 96375; 99152; 99285; A4620; C9113; G0378; J0696; J2060; J2250; J2270; J2405; J2765; J3010; J7030; J7040; J7512; Q9967

== ENCOUNTER 2021-12-04 11:00 | Emergency (ER) | payer MEDICAID ==
[~2021-12-04] VITALS: Ht 185.4 cm; Wt 109.1 kg
[~2021-12-04 11:00] MED LIST changes: -DEXA6TAB PO; -DIAZ-351 PO; +DIAZ5TAB4 PO; -METH-360 PO; +METH-798 PO; -NO HOME MEDS; -ONDA4TAB6 PO; +PANT40TA54 PO; -PRED10TA23 PO; +SUCR1TAB34 PO
[2021-12-04 11:36] VITALS: BP 127/76
[2021-12-04] MEDS ORDERED: DOXYCYCLINE 100MG CAPSULE PO STA (19:58)
[2021-12-04] MEDS ORDERED: predniSONE 20 mg tablet PO ONE (20:00)
[2021-12-04] MEDS ORDERED: PRED20TA PO (20:23)
[2021-12-04] MEDS ORDERED: ALBU8HFA PO (20:23)
[2021-12-04] MEDS ORDERED: DOXY-1 PO (21:05)
== END 2021-12-04 21:27 | disposition home or self-care (01) ==
LOC: ER 11:01
DX: J40 Bronchitis, not specified as acute or chronic (principal); I10 Essential (primary) hypertension; F12.10 Cannabis abuse, uncomplicated; Z79.899 Other long term (current) drug therapy
CPT/HCPCS: 71045; 93005; 99283; J7512

== ENCOUNTER 2023-09-10 05:59 | Emergency (ER) | payer MEDICAID ==
[~2023-09-10] VITALS: Ht 188 cm; Wt 109.2 kg
[2023-09-10 07:01] VITALS: TEMP 97.9
[2023-09-10 10:26] VITALS: BP 130/85; PULSE 75; RESP 16; O2SAT 97
== END 2023-09-10 10:35 | disposition home or self-care (01) ==
LOC: ER 06:00
DX: K92.1 Melena (principal); I10 Essential (primary) hypertension; F12.90 Cannabis use, unspecified, uncomplicated; Z88.8 Allergy status to other drugs, medicaments and biological substances; Z79.899 Other long term (current) drug therapy; Z72.89 Other problems related to lifestyle
CPT/HCPCS: 99281